=== PATIENT | male | born 1990 | race Asian ===

== ENCOUNTER 2021-01-04 11:08 | Emergency (ER) | payer OTHER ==
[~2021-01-04] VITALS: Ht 180.3 cm; Wt 108.0 kg
[2021-01-04 11:32] VITALS: BP 148/88; TEMP 98.4
== END 2021-01-04 11:33 | disposition home or self-care (01) ==
LOC: ED 11:08
DX: J30.1 Allergic rhinitis due to pollen (principal); R09.89 Other specified symptoms and signs involving the circulatory and respiratory systems; F17.210 Nicotine dependence, cigarettes, uncomplicated
CPT/HCPCS: 99281